=== PATIENT | female | born 1970 | race Two or more races ===

== ENCOUNTER → 2017-09-04 | Outpatient (CLI) | payer OTHER ==
[~2017-09-04] MED LIST: TAPAZOLE10 MG
== END | disposition home or self-care (01) ==
LOC: PPHC 14:57
DX: R22.9 Localized swelling, mass and lump, unspecified (principal)

== ENCOUNTER 2019-02-02 19:40 | Emergency (ER) | payer OTHER ==
[~2019-02-02] VITALS: Ht 160 cm; Wt 61.2 kg
== END 2019-02-02 21:53 | disposition home or self-care (01) ==
LOC: ER 19:40
DX: M62.838 Other muscle spasm (principal)

== ENCOUNTER 2021-04-20 12:18 | Outpatient (CLI) | payer OTHER | END 2021-04-20 12:20 | disposition home or self-care (01) | LOC: LAB 12:18 | PROVIDERS: ATTEND Orthopaedic Surgery | DX: Z03.818 Encounter for observation for suspected exposure to other biological agents ruled out (principal) ==

== ENCOUNTER → 2021-05-08 | Outpatient (CLI) | payer OTHER | END | disposition home or self-care (01) | LOC: PPH VACUNA | DX: Z23 Encounter for immunization (principal) ==

== ENCOUNTER → 2021-11-28 | Emergency (ER) | payer OTHER | END | disposition home or self-care (01) | LOC: ER 19:24 | DX: K05.30 Chronic periodontitis, unspecified (principal) ==

== ENCOUNTER 2023-03-23 09:52 | Emergency (ER) | payer OTHER ==
[~2023-03-23] VITALS: Ht 160 cm; Wt 61.7 kg
[2023-03-23] MEDS ORDERED: SYNTHROID137 MCG PO (10:08)
[2023-03-23] MEDS ORDERED: ZESTRIL5 MG (10:09)
== END 2023-03-23 12:12 | disposition home or self-care (01) ==
LOC: ER 09:53
DX: I10 Essential (primary) hypertension (principal)

== ENCOUNTER 2023-04-27 21:52 | Emergency (ER) | payer OTHER ==
[~2023-04-27] VITALS: Ht 160 cm; Wt 61.2 kg
[~2023-04-27 21:52] MED LIST changes: +SYNTHROID137 MCG PO; +ZESTRIL5 MG
[2023-04-27] MEDS ORDERED: CLEOCIN HCL300 MG PO (23:27)
== END 2023-04-28 00:08 | disposition home or self-care (01) ==
LOC: ER 21:52
DX: S61.211A Laceration without foreign body of left index finger without damage to nail, initial encounter (principal); W54.0XXA Bitten by dog, initial encounter; Y93.89 Activity, other specified; Y92.89 Other specified places as the place of occurrence of the external cause; Y99.8 Other external cause status

== ENCOUNTER 2023-05-05 08:56 | Emergency (ER) | payer OTHER ==
[~2023-05-05] VITALS: Ht 160 cm; Wt 61.2 kg
[~2023-05-05 08:56] MED LIST changes: +CLEOCIN HCL300 MG PO
== END 2023-05-05 11:19 | disposition home or self-care (01) ==
LOC: ER 08:57
DX: Z48.02 Encounter for removal of sutures (principal)

== ENCOUNTER 2024-01-21 09:06 | Outpatient (CLI) | payer OTHER | END 2024-01-21 09:32 | disposition home or self-care (01) | LOC: SONOGRAMA 09:06 | PROVIDERS: ATTEND Orthopaedic Surgery | DX: M25.511 Pain in right shoulder (principal); M25.521 Pain in right elbow ==

== ENCOUNTER 2025-02-08 08:49 | Emergency (ER) | payer OTHER ==
[~2025-02-08] VITALS: Ht 160 cm; Wt 57.6 kg
[2025-02-08] MEDS ORDERED: DILTIAZEM 24HR180 MG PO (09:10)
[2025-02-08] MEDS ORDERED: DEXAMETHASONE SODIUM PHOSPHATE 4 MG/ML VIAL IM ONE (09:45)
[2025-02-08] MEDS ORDERED: KETOROLAC TROMETHAMINE 60 MG VIAL IM ONE ×2 (09:45→10:12)
[2025-02-08] MEDS ORDERED: DEXAMETHASONE SODIUM PHOSPHATE 4 MG/ML VIAL ONE (10:12)
== END 2025-02-08 12:37 | disposition home or self-care (01) ==
LOC: ER 08:49
DX: I10 Essential (primary) hypertension (principal); M62.830 Muscle spasm of back; E03.8 Other specified hypothyroidism